=== PATIENT | female | born 1960 | race Hispanic/Latino ===

== ENCOUNTER 2017-06-14 07:16 | Day surgery (SDC) | payer BC ==
[2017-06-08 08:24] VITALS: BMI 43.4
[2017-06-14] MEDS ORDERED: Propofol 10 mg/ml Inj (20 ML) ONE (08:10)
[2017-06-14] MEDS ORDERED: Lidocaine 2% Inj (20ml) ONE (08:13)
[2017-06-14] MEDS ORDERED: Sodium Chloride 0.9% 1,000 ML IV SCH (08:45)
[2017-06-14 09:04] VITALS: PULSE 75
[2017-06-14 09:34] VITALS: BP 134/78; RESP 16; TEMP 98
[2017-06-14 10:20] VITALS: O2SAT 99
== END 2017-06-14 09:59 | disposition home or self-care (01) ==
LOC: ENDO 07:16
PROVIDERS: ATTEND Internal Medicine Gastroenterology
DX: K21.0 Gastro-esophageal reflux disease with esophagitis (principal); K44.9 Diaphragmatic hernia without obstruction or gangrene; K31.7 Polyp of stomach and duodenum; K22.70 Barrett's esophagus without dysplasia; K29.80 Duodenitis without bleeding; K25.9 Gastric ulcer, unspecified as acute or chronic, without hemorrhage or perforation; I10 Essential (primary) hypertension; K29.50 Unspecified chronic gastritis without bleeding
CPT/HCPCS: 43239; 88305; 88312; 88342; J2704; J3010; J7040 ×2